=== PATIENT | male | born 1940 | race Caucasian/White ===

== ENCOUNTER 2023-01-20 08:05 | Outpatient (CLI) | payer MEDICARE | END 2023-01-20 08:06 | disposition left against medical advice (07) | LOC: EMS 08:05 | DX: S01.81XA Laceration without foreign body of other part of head, initial encounter (principal); V89.3XXA Person injured in unspecified nonmotor-vehicle accident, traffic, initial encounter; Y93.I9 Activity, other involving external motion; Y92.414 Local residential or business street as the place of occurrence of the external cause; I10 Essential (primary) hypertension ==

== ENCOUNTER 2023-01-20 09:21 | Emergency (ER) | payer MEDICARE ==
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
[2023-01-20] MEDS ORDERED: LIDOCAINE 1%-EPI 1:100000 20 ML MDV SUBQ STA (10:17)
[2023-01-20] MEDS ORDERED: ACETAMINOPHEN 325 MG TABLET PO STA (11:18)
[2023-01-20 11:53] VITALS: BP 162/80; O2SAT 99
== END 2023-01-20 11:50 | disposition home or self-care (01) ==
LOC: ED 09:21
DX: S01.81XA Laceration without foreign body of other part of head, initial encounter (principal); X58.XXXA Exposure to other specified factors, initial encounter; Y93.I9 Activity, other involving external motion
CPT/HCPCS: 12013; 99282; 99283; A9270